=== PATIENT | male | born 1990 | race African-American/Black ===

== ENCOUNTER 2017-10-12 22:44 | Emergency (ER) | payer MEDICAID ==
[~2017-10-12] VITALS: Ht 167.6 cm; Wt 71.0 kg
[2017-10-12 22:50] VITALS: BP 135/98
== END 2017-10-13 02:20 | disposition left against medical advice (07) ==
LOC: ER 22:56
DX: Z53.21 Procedure and treatment not carried out due to patient leaving prior to being seen by health care provider (principal)

== ENCOUNTER 2019-01-05 12:53 | Emergency (ER) | payer MEDICAID ==
[~2019-01-05] VITALS: Ht 167.6 cm; Wt 67.0 kg
[2019-01-05 13:09] VITALS: BP 137/89
== END 2019-01-05 16:00 | disposition left against medical advice (07) ==
LOC: ER 12:53
DX: R10.9 Unspecified abdominal pain (principal); Z53.21 Procedure and treatment not carried out due to patient leaving prior to being seen by health care provider

== ENCOUNTER 2019-10-04 13:39 | Emergency (ER) | payer MEDICAID ==
[~2019-10-04] VITALS: Ht 177.8 cm; Wt 73.0 kg
[2019-10-04] MEDS ORDERED: KETOROLAC 30MG/ML VIAL IV STA (14:45)
[2019-10-04] MEDS ORDERED: ONDANSETRON HCL 4MG/2ML INJ IV STA (14:45)
[2019-10-04] MEDS ORDERED: SODIUM CHLORIDE 0.9% 1,000 ML IV ONE (14:45)
[2019-10-04 15:00] LABS: CHLORIDE 100 mEq/L (98-107)
[2019-10-04 15:02] LABS: INR 0.9; PROTHROMBIN TIME 10.3 sec (9.6-11.0)
[2019-10-04 15:04] LABS: BASOPHILS % 1.1 % (0.0-2.0); EOSINOPHILS % 0.3 % (0.0-5.0); HEMATOCRIT. 43.8 % (42.0-52.0); LYMPHOCYTES % 45.7 % (20.0-50.0); MEAN CORPUSCULAR HEMOGLOBIN 32.8 pg (28.0-32.0); MEAN CORPUSCULAR VOLUME 95.9 fL (80.0-94.0); MEAN PLATELET VOLUME 8.4 fl (7.4-10.4); MONOCYTES % 7.2 % (2.0-8.0); NEUTROPHILS % 45.7 % (40.0-76.0); PLATELET 205 x1000/uL (130-400); RED BLOOD CELL COUNT 4.57 mill/uL (4.7-6.1); RED CELL DISTRIBUTION WIDTH 12.8 % (11.6-14.6)
[2019-10-04 15:07] LABS: ETHANOL BLOOD 244 mg/dL
[2019-10-04 16:18] LABS: CLARITY URINE CLEAR (CLEAR); COLOR URINE YELLOW (YELLOW); KETONES URINE NEGATIVE (NEGATIVE); LEUKOCYTE ESTERASE URINE NEGATIVE (NEGATIVE); NITRITE URINE NEGATIVE (NEGATIVE); OCCULT BLOOD URINE NEGATIVE (NEGATIVE); PROTEIN URINE NEGATIVE (NEGATIVE); SPECIFIC GRAVITY URINE 1.005 (1.005-1.030); UROBILINOGEN URINE 0.2 E.U./dL (0.2-1.0)
[2019-10-04 16:43] LABS: *AMPHETAMINES SCREEN URINE NEGATIVE (NEGATIVE); *BARBITURATES SCREEN URINE NEGATIVE (NEGATIVE); *BENZODIAZEPINES SCREEN URINE NEGATIVE (NEGATIVE); *COCAINE SCREEN URINE NEGATIVE (NEGATIVE); METHADONE URINE SCREEN NEGATIVE (NEGATIVE)
[2019-10-04 16:44] LABS: CANNABINOID URINE SCREEN NEGATIVE (NEGATIVE); OPIATES URINE SCREEN NEGATIVE (NEGATIVE); PHENCYCLIDINE URINE SCREEN NEGATIVE (NEGATIVE)
[2019-10-04 18:15] VITALS: BP 133/92
[2019-10-04] MEDS ORDERED: IOHEXOL-300 100 ML BOTTLE ONE (23:23)
== END 2019-10-04 18:23 | disposition home or self-care (01) ==
LOC: ER 13:39
DX: K80.20 Calculus of gallbladder without cholecystitis without obstruction (principal); F10.10 Alcohol abuse, uncomplicated; Y90.8 Blood alcohol level of 240 mg/100 ml or more
CPT/HCPCS: 36415; 71045; 74177; 80053; 80305; 80320; 81003; 83690; 83880; 84484; 85025; 85610; 93005; 96374; 96375; 99285; J1885; J2405; J7030; Q9967; G0480